=== PATIENT | female | born 2000 | race Two or more races ===

== ENCOUNTER 2020-07-06 11:55 | Emergency (ER) | payer OTHER ==
[~2020-07-06] VITALS: Ht 160 cm; Wt 95.9 kg
--- NOTE | 2020-07-06 12:34 | NUR ---
pt w/ c/o cp x1 week and anxiety. 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 pt attached to monitors. vss. busby.
[2020-07-06] MEDS ORDERED: KETOROLAC 30 MG/1 ML IM ONE (13:00)
[2020-07-06] MEDS ORDERED: LORazepam 0.5MG TABLET PO ONE (13:00)
[2020-07-06] MEDS ORDERED: KETOROLAC 30 MG/1 ML ONE (13:15)
[2020-07-06] MEDS ORDERED: LORazepam 0.5MG TABLET ONE (13:15)
--- NOTE | 2020-07-06 13:25 | NUR ---
pt to bathroom with steady gait. given ua cup
[2020-07-06 13:30] LABS: ALANINE AMINOTRANSFERASE 36 U/L (12-78); ALBUMIN 3.6 g/dL (3.4-5.0); ANION GAP 7 mmol/L (5-15); CALCIUM 8.9 mg/dL (8.5-10.1); CHLORIDE 106 mmol/L (98-107); CREATININE 0.61 mg/dL (0.55-1.02)
[2020-07-06 13:33] LABS: ALKALINE PHOSPHATASE 60 U/L (45-117); BILIRUBIN,TOTAL 0.3 mg/dL (0.2-1.0); TOTAL PROTEIN 8.1 g/dL (6.4-8.2)
[2020-07-06 13:38] LABS: BASOPHILS % (AUTO) 1 % (0-1); EOSINOPHILS % (AUTO) 1 % (1-7); LYMPHOCYTES % (AUTO) 38 % (22-44); MD NO; MEAN CORPUSCULAR HEMOGLOBIN 28.8 pg (27.0-34.8); MEAN CORPUSCULAR HGB CONC 33.1 g/dL (32.4-35.8); MEAN PLATELET VOLUME 7.2 fL (7.4-10.4); MONOCYTES % (AUTO) 11 % (2-9); NEUTROPHILS % (AUTO) 49 % (42-75); PLATELET COUNT 312 x10^3/uL (130-400); RED BLOOD COUNT 4.83 x10^6/uL (3.82-5.3); RED CELL DISTRIBUTION WIDTH 13.8 % (9.6-15.2)
[2020-07-06 13:51] VITALS: BP 93/57
== END 2020-07-06 14:16 | disposition home or self-care (01) ==
LOC: ED 14:10
DX: R07.89 Other chest pain (principal); F41.1 Generalized anxiety disorder
CPT/HCPCS: 36415; 71045; 80053; 85025; 93005; 96372; 99285; J1885